=== PATIENT | female | born 1950 | race Caucasian/White ===

== ENCOUNTER 2022-09-22 13:20 | Outpatient (CLI) | payer OTHER | END 2022-09-22 13:27 | disposition home or self-care (01) | LOC: SONOGRAMA 13:20 | DX: N60.11 Diffuse cystic mastopathy of right breast (principal); N60.12 Diffuse cystic mastopathy of left breast ==

== ENCOUNTER 2024-11-02 11:26 | Outpatient (CLI) | payer OTHER | END 2024-11-02 11:31 | disposition home or self-care (01) | LOC: MAMO-SONO 11:26 | PROVIDERS: ATTEND Specialist | DX: N60.11 Diffuse cystic mastopathy of right breast (principal); N60.12 Diffuse cystic mastopathy of left breast; Z12.31 Encounter for screening mammogram for malignant neoplasm of breast ==

== ENCOUNTER 2025-01-26 07:58 | Outpatient (CLI) | payer OTHER | END 2025-01-26 08:00 | disposition home or self-care (01) | LOC: SONOGRAMA 07:58 | PROVIDERS: ATTEND Obstetrics & Gynecology | DX: R10.2 Pelvic and perineal pain (principal); N81.2 Incomplete uterovaginal prolapse ==

== ENCOUNTER 2025-03-15 10:25 | Outpatient (CLI) | payer OTHER | END 2025-03-15 10:29 | disposition home or self-care (01) | LOC: RAD 10:25 | PROVIDERS: ATTEND Student in an Organized Health Care Education/Training Program | DX: I10 Essential (primary) hypertension (principal) ==